=== PATIENT | female | born 1960 | race Caucasian/White ===

== ENCOUNTER 2016-10-06 10:37 | Emergency (ER) | payer BC ==
[~2016-10-06] VITALS: Wt 81.5 kg
[~2016-10-06 10:37] MED LIST: HYDROCHLOROTHIAZIDE PO; OMEPRAZOLE PO; SERTRALINE PO
[2016-10-06] MEDS ORDERED: SOD CHLORIDE 0.9% 1,000 ML IV STA (12:05)
[2016-10-06 12:25] LABS: ADD SCAN DIFF NO
[2016-10-06] MEDS ORDERED: HYD25 PO (12:32)
[2016-10-06 12:37] LABS: BASOPHILS % 0.5 % (0.0-2.0); EOSINOPHILS # 0.7 10^3/ul (0.0-0.5); EOSINOPHILS % 11.2 % (0.0-7.0); HEMATOCRIT 40.5 % (37.0-47.0); HEMOGLOBIN 14.4 g/dl (12.0-16.0); LYMPHOCYTES # 2.5 10^3/ul (0.8-2.9); MEAN CORPUSCULAR HEMOGLOBIN 31.3 pg (29.0-33.0); MEAN CORPUSCULAR HGB CONC 35.6 g/dl (32.0-37.0); MONOCYTE # 0.6 10^3/ul (0.3-0.9); MONOCYTES % 8.5 % (0.0-11.0); NEUTROPHIL # 2.7 10^3/ul (1.6-7.5); NEUTROPHILS % 41.6 % (39.0-77.0); PLATELET COUNT 243 10^3/UL (140-415); RED CELL DISTRIBUTION WIDTH 13.1 % (11.5-14.5); WHITE BLOOD COUNT 6.4 10^3/ul (4.8-10.8)
[2016-10-06 12:56] LABS: CALCIUM 9.2 mg/dl (8.4-10.2); CREATININE 0.61 mg/dl (0.44-1.00); POTASSIUM 3.6 mmol/L (3.5-5.1)
--- NOTE | 2016-10-06 14:30 | ERD ---
ER Documentation Chief Complaint Date/Time DATE: 10/06/16 TIME: 14:26 Chief Complaint NUMBNESS TO LEG AND ARMS STARTED THS MORNING: EQUAL [employer]ATION [employer]AF[employer]ICER AND LEG STRENGTH HPI 56-year-old woman complains of 1 day of paresthesias to the face arms hands, and left leg. She states symptoms began this morning and have been constant for a few hours, denies previous episodes. She states she feels anxious since last night and had difficulty sleeping last night. Her son who is also at the bedside states that his mother does suffer from anxiety and it seems to him that she has had these episodes in the past. She denies suicidal or homicidal ideation, no weakness in her arms or legs, no slurred speech, no headache or blurry vision, no neck pain or stiffness. She denies fevers or chills, no vomiting or diarrhea, no abdominal pain, no difficulty ambulating, no recent antibiotic use or recent travel. ROS All systems reviewed and are negative except as per history of present illness. Medications Home Meds Reported Medications Hydrochlorothiazide* (Hydrochlorothiazide*) 25 Mg Tab, 25 MG PO DAILY, #30 TAB 10/06/16 Discontinued Reported Medications [Omeprazole] No Conflict Check, PO DAILY 11/01/12 [Hydrochlorothiazide] No Conflict Check, PO DAILY 11/01/12 [Sertraline] No Conflict Check, PO DAILY 11/01/12 Allergies Allergies: Coded Allergies: No Known Allergy (Unverified , 11/01/12) PMhx/Soc Hypertension, gastritis, possibly anxiety History of Surgery: Yes (CHOLECYSTECTOMY 02/2012) Anesthesia Reaction: No Hx Neurological Disorder: Yes (MIGRAINES 20 YRS) Hx Respiratory Disorders: No Hx Cardiac Disorders: Yes (HTN 3 YRS) Hx Psychiatric Problems: Yes (ANXIETY, DEPRESSION. PO MEDS & FAM SUPPORT) Hx Miscellaneous Medical Probl: No Hx Alcohol Use: Yes (SOCIAL) Hx Substance Use: No Hx Tobacco Use: No Smoking Status: Never smoker FmHx Family History: No diabetes Physical Exam Vitals Vital Signs Date Time Temp Pulse Resp B/P Pulse Ox O2 Delivery O2 Flow Rate FiO2 10/06/16 10:45 98.0 85 18 185/85 99 Physical Exam GENERAL: Well-developed, well-nourished, appears anxious HEENT: Moist mucous membranes, pink conjunctiva, no cervical spine tenderness or step-off deformities, no goiter, no jaundice or icterus, extraocular movements intact without pain. No submandibular induration, and no pharyngeal erythema NEURO: Alert and oriented 3, cranial nerves II through XII intact bilaterally, pupils equal round reactive to light, no focal deficits or facial asymmetry, sensation intact distally Strength 5/5 in upper and lower extremities bilaterally, no pronator drift, no cerebellar signs CARDIAC: Regular rate and rhythm, no murmurs rubs or gallops LUNGS: Clear bilaterally no wheezing crackles or stridor ABDOMEN: Soft nontender, no guarding, no rigidity, no rebound, no psoas sign no obturator sign. Normoactive bowel sounds SKIN: Warm and dry to touch, no abrasions, contusions, or hematomas, no lacerations, no ecchymosis, no target lesions, and without ulcers EXTREMITIES: No clubbing cyanosis or edema, calves are bilaterally symmetrical, no Homans sign, no popliteal cord sign. Distal pulses equal and bilateral PSYCH: Appears anxious Result Diagram: 10/06/16 1115 10/06/16 1115 Results 24 hrs Laboratory Tests Test 10/06/16 11:15 White Blood Count 6.410^3/ul Red Blood Count 4.6010^6/ul Hemoglobin 14.4g/dl Hematocrit 40.5% Mean Corpuscular Volume 88.0fl Mean Corpuscular Hemoglobin 31.3pg Mean Corpuscular Hemoglobin Concent 35.6g/dl Red Cell Distribution Width 13.1% Platelet Count 36702^3/UL Mean Platelet Volume 11.0fl Neutrophils % 41.6% Lymphocytes % 38.0% Monocytes % 8.5% Eosinophils % 11.2% Basophils % 0.5% Nucleated Red Blood Cells % 0.0/100WBC Neutrophils # 2.710^3/ul Lymphocytes # 2.510^3/ul Monocytes # 0.610^3/ul Eosinophils # 0.710^3/ul Basophils # 0.010^3/ul Nucleated Red Blood Cells # 0.010^3/ul Sodium Level 138mmol/L Potassium Level 3.6mmol/L Chloride Level 105mmol/L Carbon Dioxide Level 27mmol/L Anion Gap 10 Blood Urea Nitrogen 12mg/dl Creatinine 0.61mg/dl Glucose Level 99mg/dl Calcium Level 9.2mg/dl Current Medications Medications (Trade) Dose Ordered Sig/Benedicto Route PRN Reason Start Time Stop Time Status Last Admin Dose Admin Sodium Chloride (NS) 1,000 ml @ 1,000 mls/hr Q1H STAT IV 10/06/16 12:05 10/06/16 13:04 DC 10/06/16 12:30 Procedures/MDM IV line was established patient was placed on case monitor rhythm strip revealed a sinus rhythm at about 80 bpm with upright P and T waves. Patient was afebrile. I administered 1 L normal saline intravenously. CBC and electrolytes were normal. Neurologic exam was repeated by me prior to discharge and remained normal, she states her symptoms have improved. Differential diagnoses considered, included but not limited to acute coronary syndrome, pulmonary embolism, aortic dissection, abdominal aortic aneurysm, sepsis, stroke, meningitis, encephalitis, pneumonia, appendicitis, cholecystitis , bowel obstruction, pyelonephritis, nephrolithiasis, cystitis, as well as metabolic, hematologic, and electrolyte abnormalities. As well as abscess, cellulitis, fractures, and dislocations. Patient feels much better at this time, and vital signs are normal, symptoms have improved. I did give strict instructions to return to the ED if symptoms continue or worsen, patient will otherwise follow-up with primary care physician. Patient understood instructions and agreed to plan. Departure Diagnosis: Primary Impression: Paresthesia Condition: Good Patient Instructions: Paraesthesias BRYCE ENGLISH MD Oct 06, 2016 14:30
== END 2016-10-06 13:33 | disposition home or self-care (01) ==
LOC: E/R 10:37
DX: R20.2 Paresthesia of skin (principal); R40.2252 Coma scale, best verbal response, oriented, at arrival to emergency department; I10 Essential (primary) hypertension; R40.2142 Coma scale, eyes open, spontaneous, at arrival to emergency department; R40.2362 Coma scale, best motor response, obeys commands, at arrival to emergency department
CPT/HCPCS: 80048; 85025; 99284; J7030